=== PATIENT | female | born 1980 | race Caucasian/White ===

== ENCOUNTER 2020-12-23 18:43 | Emergency (ER) | payer BC ==
[~2020-12-23] VITALS: Ht 165.1 cm; Wt 75.0 kg
[2020-12-23 20:22] VITALS: BP 153/81
--- NOTE | 2020-12-23 21:58 | RAD ---
EXAM: XR FOOT_LEFT 3 VIEWS, XR EXAM OF ANKLE_LEFT 3V 12/23/2020 9:11 PM CLINICAL INDICATION: Pain COMPARISON: None TECHNIQUE: 3 views of the left ankle, 3 views of the left foot FINDINGS: Left ankle: No acute fracture. Alignment is normal. Ankle mortise is symmetric and talar dome is inta ct. There is mild soft tissue swelling, greatest laterally. Small joint effusion. Left foot: No acute fracture. Alignment is normal. Joint spaces are maintained. There is mild diffuse soft tissue swelling. IMPRESSION: No acute osseous abnormality of the left ankle or left foot. Mild diffuse soft tissue sw elling. Electronically signed by: Melanie Sung MD (12/23/2020 9:55 PM) [id number]
[2020-12-23] MEDS ORDERED: HYDR-2761 PO (22:21)
--- NOTE | 2020-12-23 22:22 | PHYS DOC ---
Past Medical History Past Medical History: No Pertinent History Past Surgical History: No Surgical History Smoking Status: Never Smoker Alcohol Use: Occasionally General Adult EDM: Chief Complaint: FOOT INJURY PAIN HPI: HPI: Patient is a 40 year old female who presents with was at a restaurant in [place] 2 to 3 days ago when she came out of bathroom there was about a 2 foot drop. She states she did not realize and twisted her ankle. She complains of left lateral ankle and foot pain. She states swelling is gone better. She is able to bear weight. 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 States been taking ibuprofen for pain. Currently rating her pain 6 out of 10 states is throbbing. Review of Systems: Review of Systems: Constitutional: Denies fever or chills. [] Eyes: Denies change in visual acuity. [] HENT: Denies nasal congestion or sore throat. [] Respiratory: Denies cough or shortness of breath. [] Cardiovascular: Denies chest pain or + left ankle and foot edema. [] GI: Denies abdominal pain, nausea, vomiting, bloody stools or diarrhea. [] : Denies dysuria. [] Musculoskeletal: Denies back pain. + Left ankle joint pain. + Left foot pain [] Integument: Denies rash. [] Neurologic: Denies headache, focal weakness or sensory changes. [] Endocrine: Denies polyuria or polydipsia. [] Lymphatic: Denies swollen glands. [] Psychiatric: Denies depression or anxiety. [] Heart Score: C/O Chest Pain: No Risk Factors: Risk Factors: DM, Current or recent (<one month) smoker, HTN, HLP, family history of CAD, obesity. Risk Scores: Score 0 - 3: 2.5% MACE over next 6 weeks - Discharge Home Score 4 - 6: 20.3% MACE over next 6 weeks - Admit for Clinical Observation Score 7 - 10: 72.7% MACE over next 6 weeks - Early Invasive Strategies Allergies: Allergies: Allergies Coded Allergies Type Severity Reaction Last Updated Verified No Known Drug Allergies 12/23/20 No Physical Exam: PE: Constitutional: Well developed, well nourished, no acute distress, non-toxic appearance. [] HENT: Normocephalic, atraumatic, bilateral external ears normal, oropharynx moist, no oral exudates, nose normal. [] Eyes: PERRLA, EOMI, conjunctiva normal, no discharge. [] Neck: Normal range of motion, no tenderness, supple, no stridor. [] Cardiovascular:Heart rate regular rhythm, no murmur [] Lungs & Thorax: Bilateral breath sounds clear to auscultation [] Abdomen: Bowel sounds normal, soft, no tenderness, no masses, no pulsatile masses. [] Skin: Warm, dry, no erythema, no rash. [] Back: No tenderness, no CVA tenderness. [] Extremities: Left lateral ankle tenderness, no cyanosis, no clubbing, ROM intact, 1+ edema. [] Neurologic: Alert and oriented X 3, normal motor function, normal sensory function, no focal deficits noted. [] Psychologic: Affect normal, judgement normal, mood normal. [] Current Patient Data: Vital Signs: Vital Signs Date Time Temp Pulse Resp B/P (MAP) Pulse Ox O2 Delivery O2 Flow Rate FiO2 12/23/20 20:22 98.1 89 16 153/81 (105) 98 Room Air 98.1 EKG: EKG: [] Radiology/Procedures: Radiology/Procedures: [] Impression: [facility] [address] [facility] [place], [place] [id number] IMAGING REPORT Signed PATIENT: FRANKI ALVAREZ ACCOUNT: [id number] : 1980 LOCATION: ER AGE: 40 SEX: F EXAM STATUS: REG ER ORD. PHYSICIAN: ONEAL ROSALES DO REASON: PAIN PROCEDURE: FOOT LEFT 3V EXAM: XR FOOT_LEFT 3 VIEWS, XR EXAM OF ANKLE_LEFT 3V 12/23/2020 9:11 PM CLINICAL INDICATION: Pain COMPARISON: None TECHNIQUE: 3 views of the left ankle, 3 views of the left foot FINDINGS: Left ankle: No acute fracture. Alignment is normal. Ankle mortise is symmetric and talar dome is intact. There is mild soft tissue swelling, greatest laterally. Small joint effusion. Left foot: No acute fracture. Alignment is normal. Joint spaces are maintained. There is mild diffuse soft tissue swelling. IMPRESSION: No acute osseous abnormality of the left ankle or left foot. Mild diffuse soft tissue swelling. Electronically signed by: Melanie Sung MD (12/23/2020 9:55 PM) [id number] DICTATED and SIGNED BY: MELANIE SUNG MD DATE: 12/23/20 [id number] Course & Med Decision Making: Course & Med Decision Making Pertinent Labs and Imaging studies reviewed. (See chart for details) See HPI. Range of motion intact but painful. No focal laxity of the joint. Pedal pulse strong present. Cap refill less than 2 seconds. Skin pink warm and dry. No bruising noted. No deformity. She can wiggle her toes. Full sensations intact. Patient placed in a walking boot. [] Dragon Disclaimer: [employer] Disclaimer: This electronic medical record was generated, in whole or in part, using a voice recognition dictation system. Departure Departure Impression: Primary Impression: Injury of ankle and foot Qualified Codes: S99.912A - Unspecified injury of left ankle, initial encounter; S99.922A - Unspecified injury of left foot, initial encounter Disposition: HOME / SELF CARE / HOMELESS Condition: STABLE Referrals: NO PCP (PCP) CASIMIRO MENDOZA MD Patient Instructions: Ankle Sprain Additional Instructions: Follow-up with your primary care physician or orthopedics. Use ice and elevation. Try to stay off the extremity as much as possible. Take medication as prescribed and with food. Pain medication can make you sleepy. Scripts Hydrocodone Bit/Acetaminophen (HYDROCODONE-APAP 5-325 ) 1 Tab Tablet 1 TAB PO PRN Q6HRS PRN for PAIN, #15 TAB 0 Refills Prov: FLORY JUÁREZ APRN 12/23/20 FLORY JUÁREZ APRN December 23, 2020 22:22
== END 2020-12-23 23:09 | disposition home or self-care (01) ==
LOC: ER 18:43
DX: S99.912A Unspecified injury of left ankle, initial encounter (principal); S99.922A Unspecified injury of left foot, initial encounter; X50.9XXA Other and unspecified overexertion or strenuous movements or postures, initial encounter; Y93.89 Activity, other specified; Y92.89 Other specified places as the place of occurrence of the external cause; Y99.8 Other external cause status
CPT/HCPCS: 73610; 73630; 99284

== ENCOUNTER 2021-04-02 20:54 | Emergency (ER) | payer BC, OTHER ==
[~2021-04-02 20:54] MED LIST: HYDR-2761 PO
== END 2021-04-02 21:44 | disposition left against medical advice (07) ==
LOC: ER 20:54
DX: S99.921A Unspecified injury of right foot, initial encounter (principal); Z53.21 Procedure and treatment not carried out due to patient leaving prior to being seen by health care provider; X58.XXXA Exposure to other specified factors, initial encounter; Y93.89 Activity, other specified; Y92.89 Other specified places as the place of occurrence of the external cause; Y99.8 Other external cause status

== ENCOUNTER 2021-12-27 13:03 | Emergency (ER) | payer SELFPAY ==
[~2021-12-27] VITALS: Ht 172.7 cm; Wt 118.0 kg
[2021-12-27] MEDS ORDERED: KETOROLAC 30 MG/ML VIAL. IM ONE (14:15)
[2021-12-27] MEDS ORDERED: DEXAMETHASONE 4 MG TABLET PO ONE (14:15)
--- NOTE | 2021-12-27 15:15 | RAD ---
AP chest. HISTORY: Cough, short of breath AP view was taken of the chest. Lungs are free of infiltrates. Heart is normal in size. There is no e ffusion. IMPRESSION: 1. No acute infiltrates. Electronically signed by: Cali Vegas MD (12/27/2021 3:12 PM) [id number]
[2021-12-27] MEDS ORDERED: ALBU2.5V8 IH (15:22)
--- NOTE | 2021-12-27 15:22 | PHYS DOC ---
Past Medical History Past Medical History: No Pertinent History Additional Past Medical Histor: denies Past Surgical History: No Surgical History Additional Past Surgical Histo: denies Smoking Status: Never Smoker Alcohol Use: Occasionally General Adult EDM: Chief Complaint: Congestion HPI: HPI: Patient is a 41 year old female who presents with 3-day history of congestion as well as sinus pressure sore throat, cough and hoarse voice that began yesterday. She reports associated bilateral chest wall soreness from cough and some shortness of breath. Patient denies fever, chills, generalized weakness, sputum production or sick contacts. Review of Systems: Review of Systems: Constitutional: Denies fever, chills or generalized weakness Eyes: Denies change in visual acuity, visual field deficits or discharge HENT: See HPI Respiratory: See HPI Cardiovascular: Denies chest pain, palpitations or edema GI: Denies abdominal pain, nausea, vomiting, bloody stools or diarrhea : Denies dysuria or hematuria Musculoskeletal: Denies back pain or joint pain Integument: Denies rash or other skin lesion Neurologic: Denies headache, focal weakness or sensory changes Heart Score: C/O Chest Pain: No Current Medications: Current Medications Medications (Trade) Dose Ordered Sig/Kristine Start Time Stop Time Status Last Admin Dose Admin Dexamethasone (Decadron) 10 mg 1X ONCE 12/27/21 14:15 12/27/21 14:17 DC 12/27/21 14:47 10 MG Ketorolac Tromethamine (Toradol 30mg Vial) 30 mg 1X ONCE 12/27/21 14:15 12/27/21 14:17 DC 12/27/21 14:47 30 MG Allergies: Allergies: Allergies Coded Allergies Type Severity Reaction Last Updated Verified No Known Drug Allergies 12/23/20 No Physical Exam: PE: Constitutional: Obese, no acute distress, non-toxic appearance. HENT: Normocephalic, atraumatic, bilateral external ears normal, oropharynx moist, no oral exudates, nose normal. Eyes: EOMI, conjunctiva normal, no discharge. Neck: Normal range of motion, no stridor. Cardiovascular: Heart regular rate and rhythm. No apparent murmurs, rubs or gallops. Lungs & Thorax: Equal thoracic expansion, no increased work of breathing, voice is hoarse, mild expiratory wheezing at the bases. Skin: Warm, dry, no erythema, no rash. Extremities: No cyanosis, no clubbing, ROM intact, no edema. Neurologic: Alert and oriented x4, normal motor function, normal sensory function, no focal deficits noted. Current Patient Data: Vital Signs: Vital Signs Date Time Temp Pulse Resp B/P (MAP) Pulse Ox O2 Delivery O2 Flow Rate FiO2 12/27/21 15:30 76 18 130/84 (99) 97 Room Air 12/27/21 13:40 98.3 71 18 139/87 (104) 96 Room Air 98.3 Radiology/Procedures: Radiology/Procedures: PROCEDURE: PORTABLE CHEST 1V AP chest. HISTORY: Cough, short of breath AP view was taken of the chest. Lungs are free of infiltrates. Heart is normal in size. There is no effusion. IMPRESSION: 1. No acute infiltrates. Electronically signed by: Cali Vegas MD (12/27/2021 3:12 PM) [id number] Course & Med Decision Making: Course & Med Decision Making Pertinent Labs and Imaging studies reviewed. (See chart for details) Patient is a 41-year-old female who presents with 3-day history of nasal and chest congestion. At this time, antibiotics not indicated. Patient exam and work-up consistent with bronchitis. Patient made aware of findings. Discussed at home treatment measures and return precautions. Patient understands and is agreeable to discharge plan. Glen Disclaimer: Glen Disclaimer: This electronic medical record was generated, in whole or in part, using a voice recognition dictation system. Departure Departure Impression: Primary Impression: Acute bronchitis with symptoms > 10 days Disposition: 01 HOME / SELF CARE / HOMELESS Condition: STABLE Referrals: NO PCP (PCP) Patient Instructions: Acute Bronchitis, Sawd-yp-Curg Additional Instructions: Follow the following supportive treatment measures: - Cool mist humidifier with plain water at bedside while you sleep - Mucinex (guaifenesin) per box instructions - Alternate ibuprofen and acetaminophen every four hours for body aches/fever/headache - Albuterol inhaler every 4 hours as needed for shortness of breath/wheezing Steps to Take: - Rest as needed - Choose healthy foods including fruits and vegetables; drink water throughout the day - Get plenty of sleep each night - If you smoke, try to quit - it may ease breathing - Avoid alcohol Contact your doctor if your recovery is not going as you expect. Get emergency care if you have problems such as: - Trouble breathing with oxygen saturation <90% - Nonstop chest pain or pressure - Changes in awareness, confusion, or problems waking - Lips or face have bluish color - Worsening of symptoms Scripts Albuterol Sulfate (PROAIR HFA INHALER) 8.5 Gm Hfa.aer.ad 2 PUFF IH PRN Q4-6HRS PRN for wheezing, #1 INHALER 0 Refills Prov: JUAN MOE 12/27/21 JUAN MOE December 27, 2021 15:22
[2021-12-27 15:30] VITALS: BP 130/84
== END 2021-12-27 15:30 | disposition home or self-care (01) ==
LOC: ER 13:03
DX: J20.9 Acute bronchitis, unspecified (principal)
CPT/HCPCS: 71045; 96372; 99283; J1885